=== PATIENT | female | born 1995 | race Asian ===

== ENCOUNTER 2022-06-13 15:31 | Emergency (ER) | payer MEDICAID ==
[~2022-06-13] VITALS: Ht 147.3 cm; Wt 72.0 kg
[2022-06-13] MEDS ORDERED: KETOROLAC 60MG/2ML VIAL IM ONE (18:30)
[2022-06-13 19:42] VITALS: BP 125/76
[2022-06-13] MEDS ORDERED: IBUP-2028 MT (19:46)
== END 2022-06-13 20:26 | disposition home or self-care (01) ==
LOC: ER 15:31
DX: M25.562 Pain in left knee (principal); D64.9 Anemia, unspecified; Z68.33 Body mass index [BMI] 33.0-33.9, adult
CPT/HCPCS: 73562; 96372; 99283; J1885

== ENCOUNTER 2022-11-28 13:15 | Emergency (ER) | payer MEDICAID ==
[~2022-11-28] VITALS: Ht 147.3 cm; Wt 73.0 kg
[~2022-11-28 13:15] MED LIST: IBUP-2028 MT
[2022-11-28 13:18] VITALS: BP 146/96
[2022-11-28 14:18] LABS: CLARITY URINE CLEAR (CLEAR); COLOR URINE YELLOW (YELLOW); KETONES URINE NEGATIVE (NEGATIVE); LEUKOCYTE ESTERASE URINE 2+ (NEGATIVE); NITRITE URINE NEGATIVE (NEGATIVE); OCCULT BLOOD URINE 1+ (NEGATIVE); PH URINE 6.5 (4.5-8.0); PROTEIN URINE NEGATIVE (NEGATIVE); SPECIFIC GRAVITY URINE 1.025 (1.005-1.030); UROBILINOGEN URINE 0.2 E.U./dL (0.2-1.0)
[2022-11-28] MEDS ORDERED: CEPH500C2 MT (15:54)
== END 2022-11-28 16:18 | disposition home or self-care (01) ==
LOC: ER 13:15
DX: N39.0 Urinary tract infection, site not specified (principal); D64.9 Anemia, unspecified
CPT/HCPCS: 81003; 81025; 99283